=== PATIENT | male | born 1965 | race Caucasian/White ===

== ENCOUNTER 2017-01-28 09:07 | Emergency (ER) | payer OTHER ==
[~2017-01-28] VITALS: Ht 170.2 cm; Wt 74.8 kg
[2017-01-28 10:04] LABS: URINE BILIRUBIN NEGATIVE (Negative); URINE BLOOD 2+ (Negative); URINE COLOR YELLOW; URINE GLUCOSE-RANDOM* NEGATIVE (Negative); URINE KETONES NEGATIVE (Negative); URINE PROTEIN (DIPSTICK) NEGATIVE (Negative); URINE UROBILINOGEN 0.2 E.U./dl (0.2-1.0)
[2017-01-28 10:05] LABS: URINE LEUKOCYTES-REFLEX 2+ (Negative)
[2017-01-28 10:14] LABS: URINE RBC >20 Many /HPF (0-2); URINE WBC-REFLEX >25 Many /HPF (0-5)
[2017-01-28 10:15] LABS: CASTS None Seen /LPF (None Seen); CRYSTALS None Seen /LPF (None Seen); SQUAMOUS None Seen /LPF (0-3)
[2017-01-28] MEDS ORDERED: LEVAQUIN 500 M500 M2 PO (11:02)
[2017-01-28] MEDS ORDERED: IBUPROFEN 600600 M1 PO (11:03)
[2017-01-28 11:28] VITALS: BP 126/78
== END 2017-01-28 11:29 | disposition home or self-care (01) ==
LOC: ER 09:07
PROVIDERS: Physician Assistant
DX: N45.1 Epididymitis (principal)